=== PATIENT | male | born 1955 | race Caucasian/White ===

== ENCOUNTER 2017-12-22 05:26 | Emergency (ER) | payer SELFPAY ==
[~2017-12-22] VITALS: Ht 177.8 cm; Wt 100.0 kg
[~2017-12-22 05:26] MED LIST: NO HOME MEDICATIONS; NORCO 325 MG-51 TAB PO
[2017-12-22] MEDS ORDERED: PRINIVIL10 MG PO (05:28)
[2017-12-22] MEDS ORDERED: LASIX 40MG TABL40 MG PO (05:30)
[2017-12-22] MEDS ORDERED: SYNTHROID 0.10.15 MG PO (05:31)
[2017-12-22] MEDS ORDERED: K-TAB10 PO (05:32)
[2017-12-22 05:33] VITALS: TEMP 97.5
[2017-12-22] MEDS ORDERED: REQUIP3 MG PO (05:33)
[2017-12-22 06:02] LABS: BASO % 0.4 % (0.0-2.0); EOS # 0.2 (0.0-0.7); EOS % 1.8 % (0-4.0); GRAN # 7.4 (1.4-6.5); GRAN % 69.6 % (42.2-75.2); LYMPH # 1.8 (1.2-3.4); LYMPH % 17.2 % (20.0-51.0); MEAN CELL VOLUME 70 fl (80.0-100.0); MEAN CORPUSCULAR HGB CONC 28 g/dl (33.0-37.0); MEAN PLATELET VOLUME 8.9 fl (7.4-10.4); MONO # 1.1 (0.1-0.6); MONO % 10.3 % (1.7-9.3); PLATELET COUNT 409 K/mm3 (130-400); RED BLOOD COUNT 4.69 M/mm3 (4.20-5.60); REDCELL DISTRIBUTION WIDTH-CV 20.3 % (11.5-14.5)
[2017-12-22 06:04] LABS: HEMATOCRIT 32.8 % (42.0-52.0); HEMOGLOBIN 9.3 g/dl (13.5-18.0); MEAN CORPUSCULAR HEMOGLOBIN 20 pg (27.0-31.0)
[2017-12-22 06:12] LABS: ALBUMIN 2.8 gm/dL (3.5-5.0); BILIRUBIN,TOTAL 0.4 mg/dL (0.0-1.0); CREATININE, serum 1.03 mg/dL (0.66-1.25); POTASSIUM 3.6 mmol/L (3.4-5.0); TOTAL PROTEIN 6.4 gm/dL (6.4-8.2)
[2017-12-22 07:04] LABS: COLLECTION METHOD CLEAN CATCH
[2017-12-22 07:10] LABS: PH 5 (5-8); SQUAMOUS EPITHELIAL 0-2 /hpf; URINE APPEARANCE Clear; URINE BACTERIA None Seen /hpf; URINE BILIRUBIN Negative (NEGATIVE); URINE BLOOD 1+ (NEGATIVE); URINE COLOR Yellow; URINE GLUCOSE Negative (NEGATIVE); URINE KETONE Negative (NEGATIVE); URINE LEUKOCYTE ESTERASE Negative (NEGATIVE); URINE NITRATE Negative (NEGATIVE); URINE PROTEIN(semi-quant) Negative (NEGATIVE); URINE RBC 0-2 /hpf; URINE UROBILINOGEN Negative (NEGATIVE)
[2017-12-22 08:30] VITALS: BP 135/88; PULSE 80
== END 2017-12-22 08:44 | disposition short-term general hospital (02) ==
LOC: COL.ER 05:26
PROVIDERS: Emergency Medicine
DX: S12.601A Unspecified nondisplaced fracture of seventh cervical vertebra, initial encounter for closed fracture (principal); I10 Essential (primary) hypertension; V29.9XXA Motorcycle rider (driver) (passenger) injured in unspecified traffic accident, initial encounter
CPT/HCPCS: J2270; J2405; J7030; Q9967